=== PATIENT | female | born 1955 ===

== ENCOUNTER 2018-03-21 08:01 | Outpatient (CLI) | payer OTHER | END 2018-03-21 08:02 | disposition home or self-care (01) | LOC: C.LAB 08:01 ==

== ENCOUNTER 2018-05-01 08:09 | Outpatient (CLI) | payer OTHER | END 2018-05-01 08:10 | disposition home or self-care (01) | LOC: C.LAB 08:09 | DX: L65.9 Nonscarring hair loss, unspecified (principal) ==